=== PATIENT | female | born 1945 | race Caucasian/White ===

== ENCOUNTER 2018-01-11 14:01 | Outpatient (CLI) | payer MEDICARE, BC ==
--- NOTE | 2018-01-11 15:36 | ULT ---
ULTRASOUND CAROTID DOPPLER STANDARD: HISTORY: TIA. COMPARISON: None. FINDINGS: Real-time, peña scale, color Doppler, and spectral analysis of the extracranial internal carotid ale paras was obtained. There is moderate atherosclerotic plaque. No elevated peak systolic velocities of the internal carot id arteries. Antegrade flow to both vertebral arteries. IMPRESSION: Mild atherosclerotic plaque. No hemodynamically significant stenosis. POS: [facility]
== END 2018-01-11 14:02 | disposition home or self-care (01) ==
LOC: SCSULT 14:01
PROVIDERS: ATTEND Family Medicine
DX: G45.9 Transient cerebral ischemic attack, unspecified (principal); I70.8 Atherosclerosis of other arteries
CPT/HCPCS: 93880